=== PATIENT | male | born 1975 | race Caucasian/White ===

== ENCOUNTER 2017-08-25 15:18 | Inpatient (IN) | payer BC ==
[~2017-08-25] VITALS: Ht 180.3 cm; Wt 112.2 kg
[2017-08-25 16:26] LABS: BILIRUBIN,URINE NEGATIVE (NEGATIVE); CLARITY,URINE SL CLOUDY (CLEAR); COLOR,URINE YELLOW (YELLOW); KETONES,URINE NEGATIVE (NEGATIVE); LEUKOCYTE ESTERASE ,URINE NEGATIVE (NEGATIVE); NITRITE,URINE NEGATIVE (NEGATIVE); PROTEIN,URINE DIPSTICK NEGATIVE (NEGATIVE); URINE UROBILINOGEN 0.2 mg/dL (0.2 - 1)
[2017-08-25 16:32] LABS: BASOPHILS % 0.2 % (0.0-1.0); HEMATOCRIT 49.6 % (38.2-49.6); HEMOGLOBIN 17.5 g/dL (14.0-18.0); LYMPHOCYTES # (AUTO) 1.4 (1.0-3.2); LYMPHOCYTES % 7.8 % (18.0-39.1); MEAN CORPUSCULAR HEMOGLOBIN 30.3 pg (28-32); MEAN CORPUSCULAR HGB CONC 35.3 g/dL (31-35); MEAN CORPUSCULAR VOLUME 85.8 fL (81-99); MONOCYTES # (AUTO) 0.7 (0.2-0.8); MONOCYTES % 4.1 % (4.4-11.3); NEUTROPHILS # (AUTO) 15.3 (2.1-6.9); NEUTROPHILS % 87.4 % (38.7-80.0); PLATELET COUNT 177 x10e3/uL (140-360); RED BLOOD COUNT 5.78 x10e6/uL (4.3-5.7); RED CELL DISTRIBUTION WIDTH 12.2 % (11.7-14.4)
[2017-08-25 16:38] LABS: BACTERIA,URINE MODERATE /HPF; EPITHELIAL CELLS,URINE RARE /LPF; WBC,URINE (MAN) 0-5 /HPF (0-5)
[2017-08-25 16:44] LABS: ALANINE AMINOTRANSFERASE 45 IU/L (0-55); ALBUMIN 4.2 g/dL (3.5-5.0); ALBUMIN/GLOBULIN RATIO 1.3 (0.8-2.0); ALKALINE PHOSPHATASE 74 IU/L (40-150); ANION GAP 14.1 mmol/L (8-16); BLOOD UREA NITROGEN 15 mg/dL (7-26); BUN/CREATININE RATIO 13 (6-25); CALCIUM 9.5 mg/dL (8.4-10.2); CARBON DIOXIDE 25 mmol/L (22-29); CHLORIDE 101 mmol/L (98-107); CREATININE, SERUM 1.19 mg/dL (0.72-1.25); EST GLOMERULAR FILTRATION RATE > 60 ML/MIN (60-); GLUCOSE 112 mg/dL (74-118); POTASSIUM 4.1 mmol/L (3.5-5.1); SODIUM 136 mmol/L (136-145)
[2017-08-25 16:45] LABS: AMYLASE 2188 U/L (25-125)
[2017-08-25] MEDS ORDERED: FAMOTIDINE 20 MG/2 ML VIAL IV STA (17:04)
[2017-08-25] MEDS ORDERED: ONDANSETRON HCL INJ 2 MG/ML VIAL IV STA (17:07)
[2017-08-25] MEDS ORDERED: SODIUM CHLORIDE 0.9% 1000ML 1,000 ML IV SCH ×2 (17:15)
[2017-08-25] MEDS ORDERED: HYDROMORPHONE 2MG/ML INJ IV ONE (17:15)
[2017-08-25 17:41] LABS: LIPASE 6435 U/L (8-78)
--- NOTE | 2017-08-25 18:40 | Diagnostic Imaging Report ---
PROCEDURE: CT ABDOMEN AND PELVIS WITH CONTRAST TECHNIQUE: The abdomen and pelvis were scanned utilizing a multidetector helical scanner from the diaphragm to the lesser trochanter after the IV administration of 100 cc of Isovue 370 and the oral administration of water. Coronal and sagittal multiplanar reformations were obtained. COMPARISON: None. INDICATIONS: ABDOMINAL PAIN, PANCREATITIS FINDINGS: LOWER THORAX: Atelectasis. HEPATOBILIARY: No focal hepatic lesions. No biliary ductal dilatation. Gallbladder: Surgically absent. SPLEEN: No splenomegaly. PANCREAS: No focal masses or ductal dilatation. Acute interstitial pancreatitis with diffuse edema of the pancreas. Normal enhancement of the pancreas. Peripancreatic inflammatory changes which extends to loculated fluid within the mesentery. Minimal fluid tracks inferiorly along the paracolic gutter. ADRENALS: No adrenal nodules. KIDNEYS/URETERS: No hydronephrosis, stones, or solid mass lesions. PELVIC ORGANS/BLADDER: Unremarkable. PERITONEUM / RETROPERITONEUM: No free air or fluid. LYMPH NODES: No lymphadenopathy. VESSELS: Unremarkable. Main portal vein, splenic vein, and SMV are patent. GI TRACT: No distention or wall thickening. BONES AND SOFT TISSUES: Unremarkable. IMPRESSION: 1. Acute interstitial pancreatitis with significant surrounding peripancreatic inflammatory changes with fluid extending into the mesentery. No evidence of loculation. 2. Diffuse hepatic steatosis. 3. Cholecystectomy. Dictated by: Corky Vizcaino M.D. on 08/25/2017 at 18:43 Electronically approved by: Corky Vizcaino M.D. on 08/25/2017 at 18:43
[2017-08-25] MEDS ORDERED: LACTATED RINGER'S 1,000 ML IV ONE (18:45)
[2017-08-25] MEDS ORDERED: HYDROMORPHONE 1MG/1ML INJ IV PRN (18:45)
[2017-08-25] MEDS ORDERED: ONDANSETRON HCL INJ 2 MG/ML VIAL IV PRN (18:45)
--- OUTSIDE RECORDS SUMMARY | 2017-08-25 18:48 | XMS REPORT ---
Author Author [facility] Address Unknown Phone Unavailable Care Team Providers Care Surgical Tech Name Role Phone PACO MEJIA Unavailable Unavailable Problems This patient has no known problems. Allergies, Adverse Reactions, Alerts This patient has no known allergies or adverse reactions. Medications This patient has no known medications. Results Test Description Test Time Test Comments Text Results Atomic Results Result Comments CT ABDOMEN/PELVIS W 2017-08-25 18:43:00 [place] [address] Patient Name: FRANCISCO J YOUSIF MR #: [id number] : 1975 Age/Sex: 42/M Req #: [id number] [facility] Physician: Ordered by: PACO MEJIA MD Report #: [id number] Location: ER Room/Bed: ____ Procedure: [id number] CT/CT ABDOMEN/PELVIS W Exam Date: 08/25/17 Exam Time: 1812 REPORT STATUS: Signed PROCEDURE: CT ABDOMEN AND PELVIS WITH CONTRAST TECHNIQUE: The abdomen and pelvis were scanned utilizing a multidetector helical scanner from the diaphragm to the lesser trochanter after the IV administration of 100 cc of Isovue 370 and the oral administration of water. Coronal and sagittal multiplanar reformations were obtained. COMPARISON: None. INDICATIONS: ABDOMINAL PAIN, PANCREATITIS FINDINGS: LOWER THORAX: Atelectasis. HEPATOBILIARY: No focal hepatic lesions. No biliary ductal dilatation. Gallbladder: Surgically absent. SPLEEN: No splenomegaly. PANCREAS: No focal masses or ductal dilatation. Acute interstitial pancreatitis with diffuse edema of the pancreas. Normal enhancement of the pancreas. Peripancreatic inflammatory changes which extends to loculated fluid within the mesentery. Minimal fluid tracks inferiorly along the paracolic gutter. ADRENALS: No adrenal nodules. KIDNEYS/URETERS: No hydronephrosis, stones, or solid mass lesions. PELVIC ORGANS/BLADDER: Unremarkable. PERITONEUM / RETROPERITONEUM: No free air or fluid. LYMPH NODES: No lymphadenopathy. VESSELS: Unremarkable. Main portal vein, splenic vein, and SMV are patent. GI TRACT: No distention or wall thickening. BONES AND SOFT TISSUES: Unremarkable. IMPRESSION: 1. Acute interstitial pancreatitis with significant surrounding peripancreatic inflammatory changes with fluid extending into the mesentery. No evidence of loculation. 2. Diffuse hepatic steatosis. 3. Cholecystectomy. Dictated by: Omid Adams M.D. on 08/25/2017 at 18:43 Electronically approved by: Omid Adams M.D. on 08/25/2017 at 18:43 Dictated By: OMID ADAMS MD 42 Transcribed By: INDY on 08/25/171842 COPY TO: PACO MEJIA MD
[2017-08-25] MEDS ORDERED: ONDANSETRON HCL 4 MG ORAL DISINTEGRATING TAB PO ONE (19:15)
[2017-08-25] MEDS ORDERED: IOPAMIDOL 370 MG/ML 200 ML INFUS..BTL INJ ONE (20:30)
[2017-08-25] MEDS ORDERED: SODIUM CHLORIDE 0.9% 50ML 50 ML ONE (20:30)
[2017-08-25] MEDS ORDERED: PANTOPRAZOLE 40 MG 10ML VIAL IV STA (23:41)
[2017-08-26] VITALS (9 sets, daily range): BP systolic 105–151; BP diastolic 54–72
[2017-08-26] MEDS: LACTATED RINGER'S 1,000 ML IV SCH ×8 (00:30→23:50)
[2017-08-26] MEDS: HYDROMORPHONE 2MG/ML INJ IV PRN ×2 (01:35→05:24)
[2017-08-26] MEDS ORDERED: MEROPENEM 500 MG VIAL ONE (05:00)
[2017-08-26] MEDS ORDERED: HYDROMORPHONE 1MG/1ML INJ ONE ×2 (05:16→09:44)
[2017-08-26] MEDS ORDERED: MEROPENEM 500MG 500 MG in SODIUM CHLORIDE 0.9% 50ML 50 ML IV SCH (06:00)
[2017-08-26 06:10] LABS: BASOPHILS % 0.1 % (0.0-1.0); HEMATOCRIT 44.4 % (38.2-49.6); HEMOGLOBIN 15.3 g/dL (14.0-18.0); MEAN CORPUSCULAR HEMOGLOBIN 30.3 pg (28-32); MEAN CORPUSCULAR HGB CONC 34.5 g/dL (31-35); MEAN CORPUSCULAR VOLUME 87.9 fL (81-99); MONOCYTES # (AUTO) 1.2 (0.2-0.8); MONOCYTES % 7.8 % (4.4-11.3); NEUTROPHILS % 78.6 % (38.7-80.0); PLATELET COUNT 145 x10e3/uL (140-360); RED BLOOD COUNT 5.05 x10e6/uL (4.3-5.7); RED CELL DISTRIBUTION WIDTH 12.4 % (11.7-14.4)
[2017-08-26] MEDS: MEROPENEM 500 MG VIAL IV SCH ×4 (06:30→23:50)
[2017-08-26 06:49] LABS: ALANINE AMINOTRANSFERASE 32 IU/L (0-55); ALBUMIN 3.3 g/dL (3.5-5.0); ALBUMIN/GLOBULIN RATIO 1.1 (0.8-2.0); ALKALINE PHOSPHATASE 56 IU/L (40-150); AMYLASE 926 U/L (25-125); BLOOD UREA NITROGEN 12 mg/dL (7-26); BUN/CREATININE RATIO 12 (6-25); CALCIUM 8.5 mg/dL (8.4-10.2); CARBON DIOXIDE 27 mmol/L (22-29); CHLORIDE 101 mmol/L (98-107); CREATININE, SERUM 0.97 mg/dL (0.72-1.25); EST GLOMERULAR FILTRATION RATE > 60 ML/MIN (60-); GLUCOSE 113 mg/dL (74-118); SODIUM 134 mmol/L (136-145)
[2017-08-26 07:09] LABS: LIPASE 1962 U/L (8-78)
[2017-08-26] MEDS: FAMOTIDINE 20 MG/2 ML VIAL IV SCH (08:07)
[2017-08-26] MEDS: PANTOPRAZOLE 40 MG 10ML VIAL IV SCH ×2 (08:07→20:21)
[2017-08-26] MEDS ORDERED: HYDROMORPHONE 1MG/1ML INJ IV PRN (10:00)
[2017-08-26] MEDS: HYDROMORPHONE 1MG/1ML INJ IV PRN ×2 (14:27→23:51)
[2017-08-27] VITALS (8 sets, daily range): BP systolic 114–126; BP diastolic 56–66
[2017-08-27] MEDS: LACTATED RINGER'S 1,000 ML IV SCH ×7 (03:06→23:10)
[2017-08-27] MEDS: ACETAMINOPHEN 1000 MG/100 ML IV PRN ×2 (04:35→17:15)
[2017-08-27] MEDS: MEROPENEM 500 MG VIAL IV SCH ×3 (06:00→17:15)
[2017-08-27 06:19] LABS: BASOPHILS % 0.1 % (0.0-1.0); EOSINOPHILS % 0.1 % (0.0-6.0); HEMATOCRIT 39.8 % (38.2-49.6); HEMOGLOBIN 13.8 g/dL (14.0-18.0); LYMPHOCYTES # (AUTO) 1.4 (1.0-3.2); LYMPHOCYTES % 8.4 % (18.0-39.1); MEAN CORPUSCULAR HEMOGLOBIN 30.5 pg (28-32); MEAN CORPUSCULAR HGB CONC 34.7 g/dL (31-35); MEAN CORPUSCULAR VOLUME 87.9 fL (81-99); MONOCYTES # (AUTO) 1.4 (0.2-0.8); MONOCYTES % 8.9 % (4.4-11.3); NEUTROPHILS # (AUTO) 13.3 (2.1-6.9); NEUTROPHILS % 81.8 % (38.7-80.0); PLATELET COUNT 119 x10e3/uL (140-360); RED BLOOD COUNT 4.53 x10e6/uL (4.3-5.7); RED CELL DISTRIBUTION WIDTH 12.4 % (11.7-14.4)
[2017-08-27 06:38] LABS: ALANINE AMINOTRANSFERASE 23 IU/L (0-55); ALBUMIN 2.8 g/dL (3.5-5.0); ALBUMIN/GLOBULIN RATIO 1.1 (0.8-2.0); ALKALINE PHOSPHATASE 50 IU/L (40-150); AMYLASE 409 U/L (25-125); ANION GAP 10.6 mmol/L (8-16); BLOOD UREA NITROGEN 10 mg/dL (7-26); BUN/CREATININE RATIO 11 (6-25); CALCIUM 8.4 mg/dL (8.4-10.2); CARBON DIOXIDE 27 mmol/L (22-29); CHLORIDE 99 mmol/L (98-107); CREATININE, SERUM 0.87 mg/dL (0.72-1.25); EST GLOMERULAR FILTRATION RATE > 60 ML/MIN (60-); GLUCOSE 87 mg/dL (74-118); LIPASE 496 U/L (8-78); POTASSIUM 3.6 mmol/L (3.5-5.1); SODIUM 133 mmol/L (136-145)
[2017-08-27] MEDS: HYDROMORPHONE 1MG/1ML INJ IV PRN ×4 (06:44→21:37)
[2017-08-27] MEDS: FAMOTIDINE 20 MG/2 ML VIAL IV SCH (08:26)
[2017-08-27] MEDS: PANTOPRAZOLE 40 MG 10ML VIAL IV SCH ×2 (08:26→20:48)
[2017-08-28] VITALS (7 sets, daily range): BP systolic 97–120; BP diastolic 53–75
[2017-08-28] MEDS: MEROPENEM 500 MG VIAL IV SCH ×4 (00:45→17:03)
[2017-08-28] MEDS: LACTATED RINGER'S 1,000 ML IV SCH ×7 (02:29→22:30)
[2017-08-28 05:37] LABS: BASOPHILS % 0.2 % (0.0-1.0); EOSINOPHILS # (AUTO) 0.1 (0.0-0.4); EOSINOPHILS % 0.4 % (0.0-6.0); HEMATOCRIT 36.8 % (38.2-49.6); HEMOGLOBIN 12.7 g/dL (14.0-18.0); LYMPHOCYTES # (AUTO) 1.7 (1.0-3.2); LYMPHOCYTES % 11.5 % (18.0-39.1); MEAN CORPUSCULAR HEMOGLOBIN 30.2 pg (28-32); MEAN CORPUSCULAR HGB CONC 34.5 g/dL (31-35); MEAN CORPUSCULAR VOLUME 87.6 fL (81-99); MONOCYTES # (AUTO) 1.2 (0.2-0.8); NEUTROPHILS # (AUTO) 11.4 (2.1-6.9); NEUTROPHILS % 79.3 % (38.7-80.0); PLATELET COUNT 105 x10e3/uL (140-360); RED CELL DISTRIBUTION WIDTH 12.2 % (11.7-14.4)
[2017-08-28] MEDS: HYDROMORPHONE 1MG/1ML INJ IV PRN ×4 (06:00→20:46)
[2017-08-28 06:04] LABS: AMYLASE 174 U/L (25-125); ANION GAP 12.5 mmol/L (8-16); BLOOD UREA NITROGEN 9 mg/dL (7-26); BUN/CREATININE RATIO 11 (6-25); CALCIUM 8.3 mg/dL (8.4-10.2); CARBON DIOXIDE 25 mmol/L (22-29); CHLORIDE 101 mmol/L (98-107); CREATININE, SERUM 0.82 mg/dL (0.72-1.25); EST GLOMERULAR FILTRATION RATE > 60 ML/MIN (60-); GLUCOSE 87 mg/dL (74-118); LIPASE 169 U/L (8-78); POTASSIUM 3.5 mmol/L (3.5-5.1); SODIUM 135 mmol/L (136-145)
[2017-08-28] MEDS: ACETAMINOPHEN 1000 MG/100 ML IV PRN ×2 (07:11→16:45)
[2017-08-28] MEDS: PANTOPRAZOLE 40 MG 10ML VIAL IV SCH ×2 (09:11→20:44)
[2017-08-28] MEDS: FAMOTIDINE 20 MG/2 ML VIAL IV SCH (09:11)
[2017-08-29] VITALS (8 sets, daily range): BP systolic 109–123; BP diastolic 56–77
[2017-08-29] MEDS: MEROPENEM 500 MG VIAL IV SCH ×5 (00:14→23:39)
[2017-08-29] MEDS: LACTATED RINGER'S 1,000 ML IV SCH ×7 (02:00→20:55)
[2017-08-29] MEDS: HYDROMORPHONE 1MG/1ML INJ IV PRN ×4 (05:51→23:39)
[2017-08-29] MEDS: ACETAMINOPHEN 1000 MG/100 ML IV PRN (05:52)
[2017-08-29 06:17] LABS: BASOPHILS % 0.3 % (0.0-1.0); EOSINOPHILS # (AUTO) 0.2 (0.0-0.4); EOSINOPHILS % 1.7 % (0.0-6.0); HEMATOCRIT 36.8 % (38.2-49.6); HEMOGLOBIN 12.7 g/dL (14.0-18.0); LYMPHOCYTES # (AUTO) 1.2 (1.0-3.2); LYMPHOCYTES % 10.7 % (18.0-39.1); MEAN CORPUSCULAR HEMOGLOBIN 30.3 pg (28-32); MEAN CORPUSCULAR HGB CONC 34.5 g/dL (31-35); MEAN CORPUSCULAR VOLUME 87.8 fL (81-99); MONOCYTES % 8.3 % (4.4-11.3); NEUTROPHILS % 78.7 % (38.7-80.0); PLATELET COUNT 106 x10e3/uL (140-360); RED BLOOD COUNT 4.19 x10e6/uL (4.3-5.7); RED CELL DISTRIBUTION WIDTH 12.1 % (11.7-14.4)
[2017-08-29 06:39] LABS: ANION GAP 13.2 mmol/L (8-16); BLOOD UREA NITROGEN 7 mg/dL (7-26); BUN/CREATININE RATIO 9 (6-25); CALCIUM 8.3 mg/dL (8.4-10.2); CARBON DIOXIDE 27 mmol/L (22-29); CHLORIDE 102 mmol/L (98-107); CREATININE, SERUM 0.76 mg/dL (0.72-1.25); EST GLOMERULAR FILTRATION RATE > 60 ML/MIN (60-); GLUCOSE 81 mg/dL (74-118); POTASSIUM 3.2 mmol/L (3.5-5.1); SODIUM 139 mmol/L (136-145)
[2017-08-29 06:59] LABS: AMYLASE 102 U/L (25-125); LIPASE 138 U/L (8-78)
[2017-08-29] MEDS: FAMOTIDINE 20 MG/2 ML VIAL IV SCH (08:13)
[2017-08-29] MEDS: PANTOPRAZOLE 40 MG 10ML VIAL IV SCH ×2 (08:13→20:55)
[2017-08-29] MEDS ORDERED: POTASSIUM CHLORIDE 10 MEQ TABCR PO NR (10:30)
[2017-08-29] MEDS: LACTULOSE SYRUP 20 GM/30 ML UDC PO SCH ×2 (10:51→17:40)
[2017-08-30 00:21] VITALS: BP 110/70
[2017-08-30] MEDS: LACTATED RINGER'S 1,000 ML IV SCH ×4 (01:09→11:10)
[2017-08-30 04:00] VITALS: BP 118/56
[2017-08-30] MEDS: HYDROMORPHONE 1MG/1ML INJ IV PRN (05:02)
[2017-08-30] MEDS: MEROPENEM 500 MG VIAL IV SCH (06:07)
[2017-08-30 07:00] LABS: BASOPHILS % 0.3 % (0.0-1.0); EOSINOPHILS # (AUTO) 0.3 (0.0-0.4); EOSINOPHILS % 2.9 % (0.0-6.0); HEMATOCRIT 36.3 % (38.2-49.6); HEMOGLOBIN 12.8 g/dL (14.0-18.0); LYMPHOCYTES # (AUTO) 1.9 (1.0-3.2); LYMPHOCYTES % 21.8 % (18.0-39.1); MEAN CORPUSCULAR HEMOGLOBIN 30.2 pg (28-32); MEAN CORPUSCULAR HGB CONC 35.3 g/dL (31-35); MEAN CORPUSCULAR VOLUME 85.6 fL (81-99); MONOCYTES # (AUTO) 0.7 (0.2-0.8); NEUTROPHILS # (AUTO) 5.9 (2.1-6.9); NEUTROPHILS % 66.8 % (38.7-80.0); PLATELET COUNT 140 x10e3/uL (140-360); RED BLOOD COUNT 4.24 x10e6/uL (4.3-5.7); RED CELL DISTRIBUTION WIDTH 12.2 % (11.7-14.4)
[2017-08-30] MEDS ORDERED: BACITRACIN 50,000 UNIT VIAL ONE (07:07)
[2017-08-30 07:19] LABS: ANION GAP 11.4 mmol/L (8-16); BLOOD UREA NITROGEN 6 mg/dL (7-26); BUN/CREATININE RATIO 8 (6-25); CALCIUM 8.4 mg/dL (8.4-10.2); CARBON DIOXIDE 26 mmol/L (22-29); CHLORIDE 105 mmol/L (98-107); CREATININE, SERUM 0.71 mg/dL (0.72-1.25); EST GLOMERULAR FILTRATION RATE > 60 ML/MIN (60-); GLUCOSE 89 mg/dL (74-118); POTASSIUM 3.4 mmol/L (3.5-5.1); SODIUM 139 mmol/L (136-145)
[2017-08-30 07:40] VITALS: BP 115/68
[2017-08-30] MEDS: FAMOTIDINE 20 MG/2 ML VIAL IV SCH (08:07)
[2017-08-30] MEDS: PANTOPRAZOLE 40 MG 10ML VIAL IV SCH (08:08)
[2017-08-30] MEDS: LACTULOSE SYRUP 20 GM/30 ML UDC PO SCH (08:08)
[2017-08-30 09:06] VITALS: BP 115/68
[2017-08-30 11:41] VITALS: BP 132/74
== END 2017-08-30 12:53 | disposition home or self-care (01) | DRG 440 ==
LOC: ER 15:18 → ERHOLD 18:45 → IMCU 23:05 → OBSVTOIN 08-26 13:02 → MED/SURG3 08-26 15:20
DX: K85.00 Idiopathic acute pancreatitis without necrosis or infection (principal); E87.6 Hypokalemia; D72.829 Elevated white blood cell count, unspecified
CPT/HCPCS: 36415; 74177; 80048; 80053; 81001; 82150; 83690; 84478; 85025; 93005; 96361; 96374; 99284; G0378; J1170; J2185; J2405; J7030; J7120; Q9967